=== PATIENT | female | born 1980 | race Caucasian/White ===

== ENCOUNTER 2020-07-16 16:12 | Emergency (ER) | payer BC ==
[2020-07-16 20:05] LABS: HEMOGLOBIN 13.7 gm/dl (12.3-15.3); RED BLOOD COUNT 4.7 M/UL (4.00-5.10); WHITE BLOOD COUNT 6.9 K/UL (4.5-11.0)
[2020-07-16 20:34] LABS: BUN/CREATININE RATIO 12 (0-10)
[2020-07-17] MEDS ORDERED: FLOVENT 110.088 GM/I INH (01:28)
[2020-07-17] MEDS ORDERED: MEDROL DOSEPAK 24 MG PO (01:28)
[2020-07-17] MEDS ORDERED: PROAIR DIGIHAL90 MCG INH (01:28)
[2020-07-17] MEDS ORDERED: NASONEX17 GM (01:28)
[2020-07-17] MEDS ORDERED: IBUPROFEN800 MG PO (01:28)
[2020-07-17] MEDS ORDERED: OMNICEF 300 MG300 MG PO (01:28)
== END 2020-07-17 01:40 | disposition home or self-care (01) ==
LOC: ER1 16:12
PROVIDERS: Emergency Medicine
DX: R42 Dizziness and giddiness (principal); H66.91 Otitis media, unspecified, right ear; J45.909 Unspecified asthma, uncomplicated
CPT/HCPCS: 70450; 71045; 80053; 81001; 82550; 82553; 83605; 83690; 84484; 84703; 85025; 85379; 85610; 85730; 93005; 99284

== ENCOUNTER → 2020-09-03 | Outpatient (CLI) | payer BC ==
[~2020-09-03] MED LIST: FLOVENT 110.088 GM/I INH; IBUPROFEN800 MG PO; MEDROL DOSEPAK 24 MG PO; NASONEX17 GM; OMNICEF 300 MG300 MG PO; PROAIR DIGIHAL90 MCG INH
== END ==
LOC: KOH-I 08-04 15:00
DX: E05.00 Thyrotoxicosis with diffuse goiter without thyrotoxic crisis or storm (principal); E04.1 Nontoxic single thyroid nodule
CPT/HCPCS: 76536